=== PATIENT | female | born 1980 | race American Indian/Alaskan Native ===

== ENCOUNTER 2017-01-09 02:45 | Emergency (ER) | payer SELFPAY ==
[2017-01-09 02:49] VITALS: BP 126/87
[2017-01-09] MEDS ORDERED: Acetaminophen 325 MG Tab PO ONE (03:13)
--- NOTE | 2017-01-09 03:17 | EDM.PDOC ---
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 Incident around 11pm, presented to ED at 3am. 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, hx toradol and meth use Endocrine/Metabolic History: Reports: Other (see below) Other Endocrine/Metabolic History: impaired glucose tolerance - Infectious Disease History Infectious Disease History: Reports: Hepatitis C - Past Surgical History Female Surgical History: Reports: section Social & Family History - Family History Family Medical History: Noncontributory - Tobacco Use Smoking Status *Q: Current Every Day Smoker Years of Tobacco use: 16 Packs/Tins Daily: 0.4 Used Tobacco, but Quit: No Second Hand Smoke Exposure: Yes - Caffeine Use Caffeine Use: Reports: Soda - Recreational Drug Use Recreational Drug Use: No Drug Use in Last 12 Months: Yes Recreational Drug Type: Reports: Other (see below) Recreational Drug Use Frequency: Not Used In Over 6 Months ED ROS GENERAL - Review of Systems Review Of Systems: See Below Constitutional: Reports: no symptoms HEENT: Reports: No symptoms Respiratory: Reports: No Symptoms Cardiovascular: Reports: No symptoms Endocrine: Reports: no symptoms GI/Abdominal: Reports: No symptoms Musculoskeletal: Reports: no symptoms Skin: Reports: bruising Neurological: Reports: Headache. Denies: Numbness, Paresthesia, Seizure, Syncope, Trouble Speaking, Difficulty Walking, Weakness, Gait Disturbance ED EXAM, HEAD INJURY - Physical Exam Exam: See Below Exam Limited By: No limitations General Appearance: alert, mild distress Head: scalp hematoma (left anterior parietal). No: atraumatic, Escobar's Sign, facial abrasions, facial ecchymosis Nexus Criteria: No: posterior, midline cervical tenderness, evidence of intoxication, altered level of consciousness, focal neurological deficit, painful distracting injuries Eyes: bilateral eye: normal fundi, normal inspection Ears: normal external exam Nose: normal inspection Throat/Mouth: Normal inspection Neck: non-tender, full range of motion, normal alignment, normal inspection Respiratory: no respiratory distress, lungs clear Cardiovascular: normal peripheral pulses, regular rate, rhythm Back Exam: full range of motion. No: paraspinal tenderness, vertebral tenderness Extremities: no evidence of injury Neurologic: no motor/sensory deficits, alert, normal mood/affect, oriented x 3 Skin: Normal color, Warm/dry - Courtney Coma Score Best Eye Response ([place]): (4) open spontaneously Best Verbal Response ([place]): (5) oriented Best Motor Response ([place]): (6) obeys commands [place] Total: 15 Course - Vital Signs Last Recorded V/S: Last Vital Signs Temp 96.6 F 01/09/17 02:48 Pulse 102 H 01/09/17 02:48 Resp 18 01/09/17 02:48 BP 126/87 01/09/17 02:48 Pulse Ox 96 01/09/17 02:48 - Orders/Labs/Meds Meds: Medications Discontinued Medications Generic Name Dose Route Start Last Admin Trade Name Zach PRN Reason Stop Dose Admin Acetaminophen 650 mg 01/09/17 03:13 01/09/17 03:16 Tylenol PO 01/09/17 03:14 650 mg NOW ONE Administration - Re-Assessments/Exams Free Text/Narrative Re-Assessment/Exam: 01/09/17 03:20 Requesting release from work for today as does not want to go with bruise on forehead Departure - Departure Time of Disposition: 03:13 Disposition: Home, Self-Care 01 Condition: good Clinical Impression: Contusion of head Qualifiers: Encounter type: initial encounter Contusion of head detail: other part of head Qualified Code(s): S00.83XA - Contusion of other part of head, initial encounter Instructions: Head Injury, Adult, Foqv-[id number] Forms: ED Department Discharge Additional Instructions: alternate tylenol and ibuprofen for discomfort ice to contusion head injury instructions rest today follow up if any change in behavior dizziness, vomiting, confusion
== END 2017-01-09 03:20 | disposition home or self-care (01) ==
LOC: DL.ED 02:45
DX: S00.03XA Contusion of scalp, initial encounter (principal); F17.210 Nicotine dependence, cigarettes, uncomplicated; W22.8XXA Striking against or struck by other objects, initial encounter; Y92.009 Unspecified place in unspecified non-institutional (private) residence as the place of occurrence of the external cause
CPT/HCPCS: 99283; A9270; 99282

== ENCOUNTER 2017-02-04 18:36 | Emergency (ER) | payer OTHER ==
[2017-02-04] MEDS ORDERED: Iopamidol 612 MG/ML 100 ML Bottle IVPUSH ONE (18:57)
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
[2017-02-04 19:55] LABS: CHLORIDE,CL 99 mmol/L (101-111); SODIUM,NA 132 mmol/L (135-145)
[2017-02-04 20:04] LABS: ACETAMINOPHEN < 10
[2017-02-04] MEDS ORDERED: Lidocaine 1% 30 ML SDV INJECT ONE (21:00)
[2017-02-04] MEDS ORDERED: Bacitracin Oint 1 GM U/D Packet TOP ONE (21:00)
== END 2017-02-04 21:51 | disposition home or self-care (01) ==
LOC: DL.ED 18:36
PROC: 0HQ3XZZ Repair Left Ear Skin, External Approach (ICD-10-PCS; principal; 2017-02-04)
DX: S02.19XA Other fracture of base of skull, initial encounter for closed fracture (principal); S06.0X1A Concussion with loss of consciousness of 30 minutes or less, initial encounter; S01.312A Laceration without foreign body of left ear, initial encounter; V48.5XXA Car driver injured in noncollision transport accident in traffic accident, initial encounter; Y92.410 Unspecified street and highway as the place of occurrence of the external cause
CPT/HCPCS: 12011; 36415; 70450; 71260; 72125; 74177; 80053; 80305; 81001; 85025; 99285; G0480; Q9967

== ENCOUNTER 2017-11-26 22:14 | Emergency (ER) | payer OTHER ==
[2017-11-27 01:22] VITALS: BP 112/61
== END 2017-11-27 00:22 ==
LOC: DL.ED 22:14
DX: Z53.21 Procedure and treatment not carried out due to patient leaving prior to being seen by health care provider (principal)

== ENCOUNTER 2017-11-27 18:19 | Emergency (ER) | payer OTHER ==
[2017-11-27 18:27] VITALS: BP 108/52
[2017-11-27] MEDS: Sodium Chloride 0.9% 1,000 ML IV ONE (18:47)
[2017-11-27 19:06] LABS: CHLORIDE,CL 101 mmol/L (101-111); SODIUM,NA 134 mmol/L (135-145)
[2017-11-27] MEDS: Iopamidol 612 MG/ML 75 ML Bottle IVPUSH ONE (20:11)
--- NOTE | 2017-11-27 20:46 | EDM.PDOC ---
ED HPI GENERAL MEDICAL PROBLEM - General Chief Complaint: Abdominal Pain Stated Complaint: LEFT SAID PAIN [id number] Time Seen by Provider: 11/27/17 19:00 Source of Information: Reports: Patient History Limitations: Reports: No Limitations - History of Present Illness INITIAL COMMENTS - FREE TEXT/NARRATIVE: ED with c/o intermittent LUQ abdominal pain for past 2 weeks. Patient notes pain worse tonight after eating. Vomiting episode last night. Last BM 3 days ago. Has attempted Ibuprofen for relief. 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 Musculoskeletal History: Reports: Back Pain, Chronic Psychiatric History: Reports: Addiction 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, hx toradol and meth use Endocrine/Metabolic History: Reports: Other (See Below) Other Endocrine/Metabolic History: impaired glucose tolerance - Infectious Disease History Infectious Disease History: Reports: Hepatitis C - Past Surgical History Female Surgical History: Reports: Section, Tubal Ligation Social & Family History - Family History Family Medical History: Noncontributory - Tobacco Use Smoking Status *Q: Current Every Day Smoker Years of Tobacco use: 15 Packs/Tins Daily: 0.7 Used Tobacco, but Quit: No Second Hand Smoke Exposure: Yes - Caffeine Use Caffeine Use: Reports: Coffee, Soda - Recreational Drug Use Recreational Drug Use: No Drug Use in Last 12 Months: Yes Recreational Drug Type: Reports: Other (see below) Recreational Drug Use Frequency: Not Used In Over 6 Months ED ROS GENERAL - Review of Systems Review Of Systems: See Below Constitutional: Denies: Fever, Chills, Weakness, Decreased Appetite HEENT: Reports: No Symptoms Respiratory: Reports: No Symptoms Cardiovascular: Reports: No Symptoms GI/Abdominal: Reports: Abdominal Pain, Constipation, Nausea (intermittent). Denies: Distension : Reports: No Symptoms Musculoskeletal: Reports: No Symptoms Skin: Reports: No Symptoms Neurological: Reports: No Symptoms ED EXAM, GI/ABD - Physical Exam Exam: See Below Exam Limited By: No Limitations General Appearance: Alert, No Apparent Distress Eyes: Bilateral: EOMI Ears: Normal External Exam Nose: Normal Inspection Throat/Mouth: Normal Inspection Head: Atraumatic, Normocephalic Neck: Normal Inspection, Full Range of Motion Respiratory/Chest: No Respiratory Distress, Lungs Clear, Normal Breath Sounds Cardiovascular: Normal Peripheral Pulses, Regular Rate, Rhythm GI/Abdominal Exam: Normal Bowel Sounds, Tender (LUQ, lower epigastric) Back Exam: Normal Inspection Extremities: Normal Inspection Neurological: Alert, Oriented Psychiatric: Normal Affect, Normal Mood Skin Exam: Warm, Dry, Intact, Normal Color Course - Vital Signs Last Recorded V/S: Last Vital Signs Temp 98.9 F 11/27/17 18:24 Pulse 81 11/27/17 18:24 Resp 18 11/27/17 18:24 BP 108/52 L 11/27/17 18:24 Pulse Ox 98 11/27/17 18:24 - Orders/Labs/Meds Labs: Laboratory Tests 11/27/17 11/27/17 11/27/17 Range/Units 18:45 18:45 18:45 WBC 10.2 H (5.0-10.0) 10^3/uL RBC 3.34 L (4.2-5.4) 10^6/uL Hgb 10.8 L D (12.0-16.0) g/dL Hct 31.8 L (37.0-47.0) % MCV 95.2 (80-100) fL MCH 32.3 (27.0-34.0) pg MCHC 34.0 (33.0-35.0) g/dL Plt Count 304 (150-450) 10^3/uL Neut % (Auto) 59.4 (42.2-75.2) % Lymph % (Auto) 30.1 (20.5-50.1) % [place] % (Auto) 7.7 (2-8) % Eos % (Auto) 2.7 (1.0-3.0) % Baso % (Auto) 0.1 (0.0-1.0) % Sodium 134 L (135-145) mmol/L Potassium 3.8 (3.6-5.0) mmol/L Chloride 101 (101-111) mmol/L Carbon Dioxide 26.0 (21.0-31.0) mmol/L Anion Gap 10.8 BUN 10 (7-18) mg/dL Creatinine 0.7 (0.6-1.3) mg/dL Est Cr Clr Drug Dosing 96.86 mL/min Estimated GFR (MDRD) > 60 BUN/Creatinine Ratio 14.28 Glucose 95 (74-105) mg/dL Calcium 8.6 (8.4-10.2) mg/dl Total Bilirubin 0.3 (0.2-1.0) mg/dL AST 68 H (10-42) IU/L ALT 82 H (10-60) IU/L Alkaline Phosphatase 67 (42-121) IU/L Total Protein 7.0 (6.7-8.2) g/dl Albumin 3.8 (3.2-5.5) g/dl Globulin 3.2 Albumin/Globulin Ratio 1.19 Amylase (28-100) U/L Lipase (22-51) U/L Urine Color Yellow (YELLOW) Urine Appearance Slightly cloudy (CLEAR) Urine pH 7.0 (5.0-9.0) Ur Specific [place] 1.015 (1.005-1.030) Urine Protein Negative (NEGATIVE) Urine Glucose (UA) Negative (NEGATIVE) Urine Ketones Negative (NEGATIVE) Urine Occult Blood Trace-intact H (NEGATIVE) Urine Nitrite Negative (NEGATIVE) Urine Bilirubin Negative (NEGATIVE) Urine Urobilinogen 0.2 (0.2-1.0) mg/dL Ur Leukocyte Esterase Negative (NEGATIVE) Urine RBC 5-10 H /HPF Urine WBC 0-5 (0-5/HPF) /HPF Ur Epithelial Cells Few /HPF Urine Bacteria Rare (0-FEW/HPF) /HPF Urine Opiates Screen (NEGATIVE) Ur Oxycodone Screen (NEGATIVE) Urine Methadone Screen (NEGATIVE) Ur Barbiturates Screen (NEGATIVE) U Tricyclic Antidepress (NEGATIVE) Ur Phencyclidine Scrn (NEGATIVE) Ur Amphetamine Screen (NEGATIVE) U Methamphetamines Scrn (NEGATIVE) Urine MDMA Screen (NEGATIVE) U Benzodiazepines Scrn (NEGATIVE) Urine Cocaine Screen (NEGATIVE) U Marijuana (THC) Screen (NEGATIVE) 11/27/17 11/27/17 Range/Units 18:45 18:45 WBC (5.0-10.0) 10^3/uL RBC (4.2-5.4) 10^6/uL Hgb (12.0-16.0) g/dL Hct (37.0-47.0) % MCV (80-100) fL MCH (27.0-34.0) pg MCHC (33.0-35.0) g/dL Plt Count (150-450) 10^3/uL Neut % (Auto) (42.2-75.2) % Lymph % (Auto) (20.5-50.1) % [place] % (Auto) (2-8) % Eos % (Auto) (1.0-3.0) % Baso % (Auto) (0.0-1.0) % Sodium (135-145) mmol/L Potassium (3.6-5.0) mmol/L Chloride (101-111) mmol/L Carbon Dioxide (21.0-31.0) mmol/L Anion Gap BUN (7-18) mg/dL Creatinine (0.6-1.3) mg/dL Est Cr Clr Drug Dosing mL/min Estimated GFR (MDRD) BUN/Creatinine Ratio Glucose (74-105) mg/dL Calcium (8.4-10.2) mg/dl Total Bilirubin (0.2-1.0) mg/dL AST (10-42) IU/L ALT (10-60) IU/L Alkaline Phosphatase (42-121) IU/L Total Protein (6.7-8.2) g/dl Albumin (3.2-5.5) g/dl Globulin Albumin/Globulin Ratio Amylase 24 L (28-100) U/L Lipase 13 L (22-51) U/L Urine Color (YELLOW) Urine Appearance (CLEAR) Urine pH (5.0-9.0) Ur Specific [place] (1.005-1.030) Urine Protein (NEGATIVE) Urine Glucose (UA) (NEGATIVE) Urine Ketones (NEGATIVE) Urine Occult Blood (NEGATIVE) Urine Nitrite (NEGATIVE) Urine Bilirubin (NEGATIVE) Urine Urobilinogen (0.2-1.0) mg/dL Ur Leukocyte Esterase (NEGATIVE) Urine RBC /HPF Urine WBC (0-5/HPF) /HPF Ur Epithelial Cells /HPF Urine Bacteria (0-FEW/HPF) /HPF Urine Opiates Screen Negative (NEGATIVE) Ur Oxycodone Screen Negative (NEGATIVE) Urine Methadone Screen Negative (NEGATIVE) Ur Barbiturates Screen Negative (NEGATIVE) U Tricyclic Antidepress Negative (NEGATIVE) Ur Phencyclidine Scrn Negative (NEGATIVE) Ur Amphetamine Screen Negative (NEGATIVE) U Methamphetamines Scrn Negative (NEGATIVE) Urine MDMA Screen Negative (NEGATIVE) U Benzodiazepines Scrn Negative (NEGATIVE) Urine Cocaine Screen Negative (NEGATIVE) U Marijuana (THC) Screen Negative (NEGATIVE) Meds: Medications Discontinued Medications Generic Name Dose Route Start Last Admin Trade Name Zach PRN Reason Stop Dose Admin Sodium Chloride 1,000 mls @ 999 mls/hr 11/27/17 18:33 11/27/17 18:47 Normal Saline IV 11/27/17 19:33 999 mls/hr .BOLUS ONE Administration Iopamidol 75 ml 11/27/17 20:10 11/27/17 20:11 Isovue-300 (61%) IVPUSH 11/27/17 20:11 75 ml ONETIME ONE Administration - Radiology Interpretation Free Text/Narrative:: CT abdomen and pelvis: cholelithiasis but no sign of acute cholecysititis or biliary tract structure There is small amount of free fluid in the cul-de-sac and there is a left ovary corpus luteum cyst Departure - Departure Time of Disposition: 20:43 Disposition: Home, Self-Care 01 Condition: Good Clinical Impression: Intermittent left upper quadrant abdominal pain Constipation Qualifiers: Constipation type: unspecified constipation type Qualified Code(s): K59.00 - Constipation, unspecified - Discharge Information Instructions: Constipation, Adult, [id number] Forms: ED Department Discharge Additional Instructions: miralax one capful daily in 8 ounces of liquid increase fluids increase fruit and fiber in diet
== END 2017-11-27 20:55 | disposition home or self-care (01) ==
LOC: DL.ED 18:19
DX: K59.00 Constipation, unspecified (principal); K80.20 Calculus of gallbladder without cholecystitis without obstruction; F17.210 Nicotine dependence, cigarettes, uncomplicated
CPT/HCPCS: 36415; 74178; 80053; 80305; 81001; 82150; 83690; 85025; 96360; 99284; J7030; Q9967

== ENCOUNTER 2018-06-24 09:23 | Emergency (ER) | payer OTHER ==
[2018-06-24 09:45] VITALS: BP 123/83
== END 2018-06-24 10:18 ==
LOC: DL.ED 09:23
DX: Z53.21 Procedure and treatment not carried out due to patient leaving prior to being seen by health care provider (principal)
CPT/HCPCS: 80305-QW; 81001; 99284

== ENCOUNTER 2018-12-09 22:36 | Emergency (ER) | payer MEDICAID, OTHER ==
[2018-12-09] MEDS ORDERED: Magnesium Citrate Solution 296 ML Bottle PO ONE (22:37)
--- NOTE | 2018-12-09 22:42 | EDM.PDOC ---
ED HPI GENERAL MEDICAL PROBLEM - General Stated Complaint: SEVERE STOMACH PAIN [id number] Time Seen by Provider: 12/09/18 23:30 Source of Information: Reports: Patient History Limitations: Reports: No Limitations - History of Present Illness INITIAL COMMENTS - FREE TEXT/NARRATIVE: ED with 2 week hx of back pain, recently taking ibuprofen for pain, and now stomach pain. Emesis x 1. Cannot remember last BM. Pain mid epigastric, worse after eating. No fever or chills. Admits hx of drug use. - Related Data Allergies Allergy/AdvReac Type Severity Reaction Status Date / Time No Known Allergies Allergy Verified 12/09/18 23:12 Home Meds: Home Meds Buprenorphine HCl/Naloxone HCl [Suboxone 12 mg-3 mg Sl Film] 8.6 mg PO DAILY [History] Ibuprofen [Advil] 600 mg PO ASDIRECTED 08/09/18 [History] Past Medical History - Past Health History Medical/Surgical History: Denies Medical/Surgical History HEENT History: Reports: None Cardiovascular History: Reports: None Respiratory History: Reports: None Gastrointestinal History: Reports: None Genitourinary History: Reports: None SCIENTIFIC ASSOCIATE History: Reports: , Spontaneous Musculoskeletal History: Reports: Back Pain, Chronic Neurological History: Reports: None Psychiatric History: Reports: Addiction Other Psychiatric History: hx toradol and meth use Endocrine/Metabolic History: Reports: Other (See Below) Other Endocrine/Metabolic History: impaired glucose tolerance Hematologic History: Reports: None Immunologic History: Reports: None Oncologic (Cancer) History: Reports: None Dermatologic History: Reports: None - Infectious Disease History Infectious Disease History: Reports: Hepatitis C - Past Surgical History Head Surgeries/Procedures: Reports: None Female Surgical History: Reports: Section, Tubal Ligation Social & Family History - Family History Family Medical History: Noncontributory - Caffeine Use Caffeine Use: Reports: Coffee ED ROS GENERAL - Review of Systems Review Of Systems: ROS reveals no pertinent complaints other than HPI. ED EXAM, GENERAL - Physical Exam Exam: See Below Exam Limited By: No Limitations General Appearance: Alert, No Apparent Distress Eye Exam: Bilateral Eye: EOMI Ears: Normal External Exam, Normal TMs Nose: Normal Inspection Throat/Mouth: Normal Inspection Head: Atraumatic, Normocephalic Neck: Normal Inspection, Full Range of Motion Respiratory/Chest: No Respiratory Distress, Lungs Clear, Normal Breath Sounds Cardiovascular: Normal Peripheral Pulses GI/Abdominal: No Distention, Tender (mid epigastric), Abnormal Bowel Sounds ( hyperactive upper). No: Distended, Guarding, Rigid, Rebound, Hepatomegaly, Splenomegaly Extremities: Normal Inspection Neurological: Alert, Oriented Psychiatric: Flat Affect Skin Exam: Warm, Dry, Intact Course - Vital Signs Last Recorded V/S: Last Vital Signs Temp 99.3 F 12/09/18 23:12 Pulse 98 12/09/18 23:12 Resp 18 12/09/18 23:12 BP 140/96 H 12/09/18 23:12 Pulse Ox 100 12/09/18 23:12 - Orders/Labs/Meds Labs: Laboratory Tests 12/09/18 12/09/18 12/09/18 Range/Units 22:50 22:50 22:55 WBC 9.2 (5.0-10.0) 10^3/uL RBC 4.08 L (4.2-5.4) 10^6/uL Hgb 12.9 D (12.0-16.0) g/dL Hct 36.6 L (37.0-47.0) % MCV 89.7 D (80-100) fL MCH 31.6 (27.0-34.0) pg MCHC 35.2 H (33.0-35.0) g/dL Plt Count 318 (150-450) 10^3/uL Neut % (Auto) 62.6 (42.2-75.2) % Lymph % (Auto) 27.8 (20.5-50.1) % [place] % (Auto) 7.5 (2-8) % Eos % (Auto) 2.0 (1.0-3.0) % Baso % (Auto) 0.1 (0.0-1.0) % Sodium 134 L (135-145) mmol/L Potassium 3.4 L (3.6-5.0) mmol/L Chloride 100 L (101-111) mmol/L Carbon Dioxide 22.0 (21.0-31.0) mmol/L Anion Gap 15.4 BUN 11 (7-18) mg/dL Creatinine 0.7 (0.6-1.3) mg/dL Est Cr Clr Drug Dosing 91.91 mL/min Estimated GFR (MDRD) > 60 BUN/Creatinine Ratio 15.71 Glucose 100 (74-105) mg/dL Calcium 8.7 (8.4-10.2) mg/dl Total Bilirubin 0.6 (0.2-1.0) mg/dL AST 22 (10-42) IU/L ALT 30 (10-60) IU/L Alkaline Phosphatase 66 (42-121) IU/L Total Protein 7.1 (6.7-8.2) g/dl Albumin 3.7 (3.2-5.5) g/dl Globulin 3.4 Albumin/Globulin Ratio 1.09 Amylase 18 L (28-100) U/L Lipase 21 L (22-51) U/L HCG, Qual Negative Urine Color Yellow (YELLOW) Urine Appearance Clear (CLEAR) Urine pH 6.0 (5.0-9.0) Ur Specific [place] 1.025 (1.005-1.030) Urine Protein Trace H (NEGATIVE) Urine Glucose (UA) Negative (NEGATIVE) Urine Ketones 40 H (NEGATIVE) Urine Occult Blood Small H (NEGATIVE) Urine Nitrite Negative (NEGATIVE) Urine Bilirubin Negative (NEGATIVE) Urine Urobilinogen 0.2 (0.2-1.0) mg/dL Ur Leukocyte Esterase Negative (NEGATIVE) Urine RBC 0-5 /HPF Urine WBC 0-5 (0-5/HPF) /HPF Ur Epithelial Cells Moderate H /HPF Urine Bacteria Moderate H (0-FEW/HPF) /HPF Urinalysis Comment Urine Opiates Screen (NEGATIVE) Ur Oxycodone Screen (NEGATIVE) Urine Methadone Screen (NEGATIVE) Ur Barbiturates Screen (NEGATIVE) U Tricyclic Antidepress (NEGATIVE) Ur Phencyclidine Scrn (NEGATIVE) Ur Amphetamine Screen (NEGATIVE) U Methamphetamines Scrn (NEGATIVE) Urine MDMA Screen (NEGATIVE) U Benzodiazepines Scrn (NEGATIVE) Urine Cocaine Screen (NEGATIVE) U Marijuana (THC) Screen (NEGATIVE) 12/09/18 Range/Units 22:55 WBC (5.0-10.0) 10^3/uL RBC (4.2-5.4) 10^6/uL Hgb (12.0-16.0) g/dL Hct (37.0-47.0) % MCV (80-100) fL MCH (27.0-34.0) pg MCHC (33.0-35.0) g/dL Plt Count (150-450) 10^3/uL Neut % (Auto) (42.2-75.2) % Lymph % (Auto) (20.5-50.1) % [place] % (Auto) (2-8) % Eos % (Auto) (1.0-3.0) % Baso % (Auto) (0.0-1.0) % Sodium (135-145) mmol/L Potassium (3.6-5.0) mmol/L Chloride (101-111) mmol/L Carbon Dioxide (21.0-31.0) mmol/L Anion Gap BUN (7-18) mg/dL Creatinine (0.6-1.3) mg/dL Est Cr Clr Drug Dosing mL/min Estimated GFR (MDRD) BUN/Creatinine Ratio Glucose (74-105) mg/dL Calcium (8.4-10.2) mg/dl Total Bilirubin (0.2-1.0) mg/dL AST (10-42) IU/L ALT (10-60) IU/L Alkaline Phosphatase (42-121) IU/L Total Protein (6.7-8.2) g/dl Albumin (3.2-5.5) g/dl Globulin Albumin/Globulin Ratio Amylase (28-100) U/L Lipase (22-51) U/L HCG, Qual Urine Color (YELLOW) Urine Appearance (CLEAR) Urine pH (5.0-9.0) Ur Specific [place] (1.005-1.030) Urine Protein (NEGATIVE) Urine Glucose (UA) (NEGATIVE) Urine Ketones (NEGATIVE) Urine Occult Blood (NEGATIVE) Urine Nitrite (NEGATIVE) Urine Bilirubin (NEGATIVE) Urine Urobilinogen (0.2-1.0) mg/dL Ur Leukocyte Esterase (NEGATIVE) Urine RBC /HPF Urine WBC (0-5/HPF) /HPF Ur Epithelial Cells /HPF Urine Bacteria (0-FEW/HPF) /HPF Urinalysis Comment Urine Opiates Screen Negative (NEGATIVE) Ur Oxycodone Screen Negative (NEGATIVE) Urine Methadone Screen Negative (NEGATIVE) Ur Barbiturates Screen Negative (NEGATIVE) U Tricyclic Antidepress Negative (NEGATIVE) Ur Phencyclidine Scrn Negative (NEGATIVE) Ur Amphetamine Screen Positive H (NEGATIVE) U Methamphetamines Scrn Positive H (NEGATIVE) Urine MDMA Screen Positive H (NEGATIVE) U Benzodiazepines Scrn Negative (NEGATIVE) Urine Cocaine Screen Negative (NEGATIVE) U Marijuana (THC) Screen Negative (NEGATIVE) Meds: Medications Discontinued Medications Generic Name Dose Route Start Last Admin Trade Name Zach PRN Reason Stop Dose Admin Sodium Chloride 1,000 mls @ 999 mls/hr 12/09/18 23:16 12/09/18 23:42 Normal Saline IV 12/10/18 00:16 999 mls/hr .BOLUS ONE Administration Iopamidol 100 ml 12/09/18 23:17 12/09/18 23:39 Isovue-300 (61%) IVPUSH 12/09/18 23:18 75 ml ONETIME ONE Administration Magnesium Citrate Confirm 12/10/18 00:52 12/10/18 00:55 Citrate Of Magnesia Administered 12/10/18 00:53 Not Given Dose 296 ml .ROUTE .STK-MED ONE Magnesium Citrate 296 ml 12/09/18 22:37 Citrate Of Magnesia PO 12/09/18 22:38 .STK-MED ONE - Radiology Interpretation Free Text/Narrative:: CT abdomen: right ovarian cyst, normal GB, Normal appendix Departure - Departure Time of Disposition: 00:52 Disposition: Home, Self-Care 01 Condition: Good Clinical Impression: Positive urine drug screen, Ovarian cyst, right Cholelithiases Qualifiers: Cholelithiasis location: gallbladder Cholecystitis presence: without cholecystitis Biliary obstruction: without biliary obstruction Qualified Code(s) : K80.20 - Calculus of gallbladder without cholecystitis without obstruction Constipation Qualifiers: Constipation type: unspecified constipation type Qualified Code(s): K59.00 - Constipation, unspecified - Discharge Information *PRESCRIPTION DRUG MONITORING PROGRAM REVIEWED*: No *COPY OF PRESCRIPTION DRUG MONITORING REPORT IN PATIENT ZACHARY: No Instructions: Cholelithiasis, Constipation, Adult Forms: ED Department Discharge Additional Instructions: mag citrate one bottle tonight liquid diet 24 hours advance slowly miralax one capful daily in 8 ounces of liquid avoid fatty foods
[2018-12-09 23:16] VITALS: BP 140/96
[2018-12-09] MEDS ORDERED: Sodium Chloride 0.9% 1,000 ML IV ONE (23:16)
[2018-12-09 23:17] LABS: ANION GAP 15.4; CHLORIDE,CL 100 mmol/L (101-111); SODIUM,NA 134 mmol/L (135-145)
[2018-12-09] MEDS ORDERED: Iopamidol 612 MG/ML 100 ML Bottle IVPUSH ONE (23:17)
[2018-12-10] MEDS ORDERED: Magnesium Citrate Solution 296 ML Bottle ONE (00:52)
== END 2018-12-10 01:03 | disposition home or self-care (01) ==
LOC: DL.ED 22:36
DX: N83.201 Unspecified ovarian cyst, right side (principal)
CPT/HCPCS: 36415; 74177; 80053; 80305; 81001; 82150; 83690; 84703; 85025; 96360; 99284; A9270; J7030; Q9967

== ENCOUNTER 2018-12-16 13:47 | Emergency (ER) | payer MEDICAID, OTHER ==
[2018-12-16 13:58] VITALS: BP 148/85
--- NOTE | 2018-12-16 14:28 | EDM.PDOC ---
ED HPI GENERAL MEDICAL PROBLEM - General Chief Complaint: Genitourinary Problem Stated Complaint: KIDNEYS ARE NOT FUNCTIONING RIGHT Time Seen by Provider: 12/16/18 14:00 Source of Information: Reports: Patient History Limitations: Reports: No Limitations - History of Present Illness INITIAL COMMENTS - FREE TEXT/NARRATIVE: This 38 yo female patient reports to the ED under instruction from the [facility] due to elevated kidney function testing. The patient was at the [facility] for follow-up due to abdominal pain. The patient reports she had her teeth removed on 12/03/18 and she has had difficulties eating since that time. The patient was seen in the ED on 12/09/18 for abdominal pain (CT demonstrated an ovarian cyst) and the patient tested positive for Meth. The patient was seen again in the ED on 12/13/18 for abdominal pain (treated for constipation). Today, the patient reports she continues to have upper abdominal pain (increased after eating). The patient reports she did eat mashed potatoes last night with some discomfort, but she did not vomit. The patient admits to methamphetamine use. The patient reports she has used meth three times this month with her last IV use being 2 days ago. The patient was told that she was to come to the ED, get an IV and be transferred to [place] due to her elevated kidney function tests. The patient also reports that she has not had a bowel movement in 3 weeks, but remembers having a large bowel movement after one of her ED visits. Duration: Week(s):, Constant Location: Reports: Abdomen Quality: Reports: Ache, Burning, Sharp Severity: Moderate Improves with: Reports: None Worsens with: Reports: Eating Context: Reports: Other Associated Symptoms: Reports: No Other Symptoms Left Upper Abdomen Pain Score (Numeric/FACES): 6 - Related Data Allergies Allergy/AdvReac Type Severity Reaction Status Date / Time No Known Allergies Allergy Verified 12/16/18 13:58 Home Meds: Home Meds Buprenorphine HCl/Naloxone HCl [Suboxone 12 mg-3 mg Sl Film] 8.6 mg PO DAILY [History] Ibuprofen [Advil] 600 mg PO ASDIRECTED 08/09/18 [History] Past Medical History - Past Health History Medical/Surgical History: Denies Medical/Surgical History HEENT History: Reports: None Cardiovascular History: Reports: None Respiratory History: Reports: None Gastrointestinal History: Reports: None Genitourinary History: Reports: None DOCENT COORDINATOR History: Reports: , Spontaneous Musculoskeletal History: Reports: Back Pain, Chronic Neurological History: Reports: None Psychiatric History: Reports: Addiction Other Psychiatric History: hx toradol and meth use Endocrine/Metabolic History: Reports: Other (See Below) Other Endocrine/Metabolic History: impaired glucose tolerance Hematologic History: Reports: None Immunologic History: Reports: None Oncologic (Cancer) History: Reports: None Dermatologic History: Reports: None - Infectious Disease History Infectious Disease History: Reports: Hepatitis C - Past Surgical History Head Surgeries/Procedures: Reports: None HEENT Surgical History: Reports: Other (See Below) Other HEENT Surgeries/Procedures: top teeth removed, dentures dont fit properly Female Surgical History: Reports: Section, Tubal Ligation Social & Family History - Family History Family Medical History: Noncontributory - Tobacco Use Smoking Status *Q: Current Every Day Smoker Years of Tobacco use: 23 Packs/Tins Daily: 1 - Caffeine Use Caffeine Use: Reports: Coffee, Energy Drinks - Recreational Drug Use Recreational Drug Use: Yes Drug Use in Last 12 Months: Yes Recreational Drug Type: Reports: Methamphetamine Recreational Drug Use Frequency: Socially ED ROS GENERAL - Review of Systems Review Of Systems: ROS reveals no pertinent complaints other than HPI. ED EXAM, GI/ABD - Physical Exam Exam: See Below Exam Limited By: No Limitations General Appearance: Alert, WD/WN, Moderate Distress, Thin Eyes: Bilateral: Normal Appearance, EOMI Ears: Normal External Exam, Normal Canal, Hearing Grossly Normal, Normal TMs Nose: Normal Inspection, Normal Mucosa, No Blood Throat/Mouth: Normal Inspection, Normal Lips, Normal Teeth, Normal Gums, Normal Oropharynx, Normal Voice, No Airway Compromise Head: Atraumatic, Normocephalic Neck: Normal Inspection, Supple, Non-Tender, Full Range of Motion Respiratory/Chest: No Respiratory Distress, Lungs Clear, Normal Breath Sounds, No Accessory Muscle Use, Chest Non-Tender Cardiovascular: Normal Peripheral Pulses, Regular Rate, Rhythm, No Edema, No Gallop, No JVD, No Murmur, No Rub GI/Abdominal Exam: Normal Bowel Sounds, Soft, No Organomegaly, No Distention, No Abnormal Bruit, No Mass, Pelvis Stable, Tender (epigastric area) (Female) Exam: Deferred Rectal (Female) Exam: Deferred Back Exam: Normal Inspection, Full Range of Motion, NT Extremities: Normal Inspection, Normal Range of Motion, Non-Tender, Normal Capillary Refill, No Pedal Edema Neurological: Alert, Oriented, CN II-XII Intact, Normal Cognition, Normal Gait, Normal Reflexes, No Motor/Sensory Deficits Psychiatric: Normal Affect, Normal Mood Skin Exam: Warm, Dry, Intact, Normal Color, No Rash Lymphatic: No Adenopathy Course - Vital Signs Last Recorded V/S: Last Vital Signs Temp 37.2 C 12/16/18 13:53 Pulse 122 H 12/16/18 13:53 Resp 16 12/16/18 13:53 BP 148/85 H 12/16/18 13:53 Pulse Ox 97 12/16/18 13:53 - Orders/Labs/Meds Orders: Active Orders 24 hr Category Date Time Status CULTURE URINE [RM] Routine Lab 12/16/18 13:48 Received Piperacillin/Tazobactam [Zosyn] 3.375 gm Med 12/16/18 17:39 Ordered Sodium Chloride 0.9% [Normal Saline] 100 ml IV ONETIME Medication Orders Piperacillin Sod/Tazobactam (Sod 3.375 gm/ Sodium Chloride) 100 mls @ 200 mls/ hr IV ONETIME ONE Stop: 12/16/18 18:08 Labs: Laboratory Tests 12/16/18 12/16/18 12/16/18 Range/Units 13:48 13:48 14:26 WBC 12.0 H (5.0-10.0) 10^3/uL RBC 4.23 (4.2-5.4) 10^6/uL Hgb 13.5 (12.0-16.0) g/dL Hct 37.5 (37.0-47.0) % MCV 88.7 (80-100) fL MCH 31.9 (27.0-34.0) pg MCHC 36.0 H (33.0-35.0) g/dL Plt Count 413 D (150-450) 10^3/uL Neut % (Auto) 75.5 H (42.2-75.2) % Lymph % (Auto) 13.9 L (20.5-50.1) % [place] % (Auto) 8.8 H (2-8) % Eos % (Auto) 1.8 (1.0-3.0) % Baso % (Auto) 0.0 (0.0-1.0) % Sodium (135-145) mmol/L Potassium (3.6-5.0) mmol/L Chloride (101-111) mmol/L Carbon Dioxide (21.0-31.0) mmol/L Anion Gap BUN (7-18) mg/dL Creatinine (0.6-1.3) mg/dL Est Cr Clr Drug Dosing mL/min Estimated GFR (MDRD) BUN/Creatinine Ratio Glucose (74-105) mg/dL Calcium (8.4-10.2) mg/dl Total Bilirubin (0.2-1.0) mg/dL AST (10-42) IU/L ALT (10-60) IU/L Alkaline Phosphatase (42-121) IU/L Total Protein (6.7-8.2) g/dl Albumin (3.2-5.5) g/dl Globulin Albumin/Globulin Ratio Urine Color Yellow (YELLOW) Urine Appearance Slightly cloudy (CLEAR) Urine pH 5.5 (5.0-9.0) Ur Specific [place] 1.015 (1.005-1.030) Urine Protein 30 H (NEGATIVE) Urine Glucose (UA) Negative (NEGATIVE) Urine Ketones 15 H (NEGATIVE) Urine Occult Blood Moderate H (NEGATIVE) Urine Nitrite Negative (NEGATIVE) Urine Bilirubin Negative (NEGATIVE) Urine Urobilinogen 0.2 (0.2-1.0) mg/dL Ur Leukocyte Esterase Negative (NEGATIVE) Urine RBC 10-20 H /HPF Urine WBC 50-75 H (0-5/HPF) /HPF Ur Epithelial Cells Few /HPF Urine Bacteria Few (0-FEW/HPF) /HPF Hyaline Casts Rare H /LPF Fine Granular Casts Few H (0/LPF) /LPF Urine Mucus Few H /LPF Urine Other See note Urine Opiates Screen Negative (NEGATIVE) Ur Oxycodone Screen Negative (NEGATIVE) Urine Methadone Screen Negative (NEGATIVE) Ur Barbiturates Screen Negative (NEGATIVE) U Tricyclic Antidepress Negative (NEGATIVE) Ur Phencyclidine Scrn Negative (NEGATIVE) Ur Amphetamine Screen Positive H (NEGATIVE) U Methamphetamines Scrn Positive H (NEGATIVE) Urine MDMA Screen Negative (NEGATIVE) U Benzodiazepines Scrn Negative (NEGATIVE) Urine Cocaine Screen Negative (NEGATIVE) U Marijuana (THC) Screen Negative (NEGATIVE) 03/19/19 Range/Units 14:26 WBC (5.0-10.0) 10^3/uL RBC (4.2-5.4) 10^6/uL Hgb (12.0-16.0) g/dL Hct (37.0-47.0) % MCV (80-100) fL MCH (27.0-34.0) pg MCHC (33.0-35.0) g/dL Plt Count (150-450) 10^3/uL Neut % (Auto) (42.2-75.2) % Lymph % (Auto) (20.5-50.1) % [place] % (Auto) (2-8) % Eos % (Auto) (1.0-3.0) % Baso % (Auto) (0.0-1.0) % Sodium 127 L (135-145) mmol/L Potassium 3.1 L (3.6-5.0) mmol/L Chloride 90 L (101-111) mmol/L Carbon Dioxide 23.0 (21.0-31.0) mmol/L Anion Gap 17.1 BUN 27 H (7-18) mg/dL Creatinine 1.6 H (0.6-1.3) mg/dL Est Cr Clr Drug Dosing 40.03 mL/min Estimated GFR (MDRD) 36 BUN/Creatinine Ratio 16.87 Glucose 97 (74-105) mg/dL Calcium 8.8 (8.4-10.2) mg/dl Total Bilirubin 0.9 (0.2-1.0) mg/dL AST 21 (10-42) IU/L ALT 21 (10-60) IU/L Alkaline Phosphatase 77 (42-121) IU/L Total Protein 7.5 (6.7-8.2) g/dl Albumin 3.4 (3.2-5.5) g/dl Globulin 4.1 Albumin/Globulin Ratio 0.83 Urine Color (YELLOW) Urine Appearance (CLEAR) Urine pH (5.0-9.0) Ur Specific [place] (1.005-1.030) Urine Protein (NEGATIVE) Urine Glucose (UA) (NEGATIVE) Urine Ketones (NEGATIVE) Urine Occult Blood (NEGATIVE) Urine Nitrite (NEGATIVE) Urine Bilirubin (NEGATIVE) Urine Urobilinogen (0.2-1.0) mg/dL Ur Leukocyte Esterase (NEGATIVE) Urine RBC /HPF Urine WBC (0-5/HPF) /HPF Ur Epithelial Cells /HPF Urine Bacteria (0-FEW/HPF) /HPF Hyaline Casts /LPF Fine Granular Casts (0/LPF) /LPF Urine Mucus /LPF Urine Other Urine Opiates Screen (NEGATIVE) Ur Oxycodone Screen (NEGATIVE) Urine Methadone Screen (NEGATIVE) Ur Barbiturates Screen (NEGATIVE) U Tricyclic Antidepress (NEGATIVE) Ur Phencyclidine Scrn (NEGATIVE) Ur Amphetamine Screen (NEGATIVE) U Methamphetamines Scrn (NEGATIVE) Urine MDMA Screen (NEGATIVE) U Benzodiazepines Scrn (NEGATIVE) Urine Cocaine Screen (NEGATIVE) U Marijuana (THC) Screen (NEGATIVE) Meds: Medications Generic Name Dose Route Start Last Admin Trade Name Freq PRN Reason Stop Dose Admin Piperacillin Sod/Tazobactam 100 mls @ 200 mls/hr 12/16/18 17:39 Sod 3.375 gm/ Sodium Chloride IV 12/16/18 18:08 ONETIME ONE Discontinued Medications Generic Name Dose Route Start Last Admin Trade Name Freq PRN Reason Stop Dose Admin Sodium Chloride 1,000 mls @ 999 mls/hr 12/16/18 15:18 12/16/18 15:25 Normal Saline IV 12/16/18 16:18 999 mls/hr .BOLUS ONE Administration Departure - Departure Time of Disposition: 17:40 Disposition: DC/Tfer to Acute Hospital 02 Condition: Serious Clinical Impression: Free intraperitoneal air, Methamphetamine abuse Acute renal failure Qualifiers: Acute renal failure type: unspecified Qualified Code(s): N17.9 - Acute kidney failure, unspecified Leukocytosis Qualifiers: Leukocytosis type: unspecified Qualified Code(s): D72.829 - Elevated white blood cell count, unspecified - Discharge Information *PRESCRIPTION DRUG MONITORING PROGRAM REVIEWED*: Not Applicable *COPY OF PRESCRIPTION DRUG MONITORING REPORT IN PATIENT ZACHARY: Not Applicable Forms: Interfacility Transfer EMTALA Care Plan Goals: Discussed the history, examination, lab, x-ray and CT results with Anh. The patient was accepted by Dr. Josue in the ED for continued evaluation and surgical consult through the ED at [facility] in [place]. The patient will be transported by [facility]. - My Orders Last 24 Hours: My Active Orders 12/16/18 13:48 CULTURE URINE [RM] Routine 12/16/18 17:39 Piperacillin/Tazobactam [Zosyn] 3.375 gm Sodium Chloride 0.9% [Normal Saline] 100 ml IV ONETIME - Assessment/Plan Last 24 Hours: My Active Orders 12/16/18 13:48 CULTURE URINE [] Routine 12/16/18 17:39 Piperacillin/Tazobactam [Zosyn] 3.375 gm Sodium Chloride 0.9% [Normal Saline] 100 ml IV ONETIME
[2018-12-16 14:53] LABS: ANION GAP 17.1
[2018-12-16] MEDS ORDERED: Sodium Chloride 0.9% 1,000 ML IV ONE (15:18)
--- NOTE | 2018-12-16 15:50 | CR ---
Clinical history: 38-year-old female spacing upper abdominal pain. Interpretation: On upright film there appears to be a trace of free air beneath the left hemidiaphragm (outside the gastric fundus) and recommend left lateral decubitus film or unenhanced CT scan of the abdomen to confirm. Clinical correlation? No foreign bodies are abdominal soft tissue mass lesion. No sign of mechanical bowel obstruction, or ascites. Lung bases clear. Normal cardiac silhouette. CONCLUSION: Suspicious. Further evaluation to exclude free intraperitoneal air, please.
--- NOTE | 2018-12-16 17:18 | CT ---
Clinical history: 38-year-old female complaining of postprandial nausea/vomiting and severe upper abdominal pain ("cholelithiasis and 2 cm simple right ovarian cyst with a small amount of free fluid in the cul-de-sac" reported on recent CT scan 09 December 2018). This methamphetamine abuser who reports current use of a "super absorbent tampon" has elevated white blood cell count of 12,000 and suggestion of "free subdiaphragmatic air" on upright abdominal plain film. Scan technique: Volume acquisition of data emergency unenhanced CT scan abdomen and pelvis obtained while the patient was lying supine on the Siemens multi slice scanner [place], [place]. All data archived in the PACS system for storage, reformatting and study. Interpretation: Abnormal. 1. Calcified gallstones RUQ (poorly defined gallbladder wall). 2. Small volume Ascitic fluid evident in the mid epigastrium, anteriorly over the surface of the liver, around the gallbladder, and dependently in the pelvis. 3. Note: There is free air evident across the epigastrium, anteriorly (supine patient). No air in the hepatobiliary ducts. 4. Cylindrical collection of air with a "tail" located in the mid pelvis, between the urinary bladder and rectum probably "tampon". 5. Retroverted midline uterus and symmetrically distended urinary bladder unremarkable. Bilaterally large kidneys without sign of calcifications or obstructive uropathy i.e. no pyelocaliectasis. 5. No foreign bodies and no sign of mechanical bowel obstruction, abscess or site of visceral perforation (free peritoneal air). 6. Normal caliber unenhanced aortoiliac vessels. No retroperitoneal air. Lung bases are clear.
--- NOTE | 2018-12-16 17:24 | US ---
Clinical history: 38-year-old female complaining of nausea/vomiting and pain has an elevated white blood cell count (12,000), abnormal serum creatinine, and CT evidence free intraperitoneal air (methamphetamine abuse). Interpretation: Abnormal. 1. Cholelithiasis and common bile duct measures 7 mm. 2. Bright echoes in the epigastrium consistent with "free air". 3. Ascitic fluid collection anterior to the left lobe of the liver, midepigastrium. 4. Large abnormally echogenic right kidney but good hilar blood flow and no current signs of pyelocaliectasis (obstruction).
[2018-12-16] MEDS ORDERED: Piperacillin/Tazobactam 3.375 GM in Sodium Chloride 0.9% 100 ML IV ONE (17:39)
== END 2018-12-16 18:10 ==
LOC: DL.ED 13:47
DX: N17.9 Acute kidney failure, unspecified (principal); K66.8 Other specified disorders of peritoneum; D72.829 Elevated white blood cell count, unspecified; F15.10 Other stimulant abuse, uncomplicated; F17.210 Nicotine dependence, cigarettes, uncomplicated; Z98.51 Tubal ligation status
CPT/HCPCS: 36415; 74019; 74176; 76705; 80053; 80305; 81001; 85025; 87086; 96365; 99285; J2543; J7030; J7050

== ENCOUNTER 2021-08-20 14:01 | Emergency (ER) | payer MEDICAID, OTHER | END 2021-08-20 15:30 | disposition left against medical advice (07) | LOC: DL.ED 14:01 | DX: Z53.21 Procedure and treatment not carried out due to patient leaving prior to being seen by health care provider (principal) ==